=== PATIENT | male | born 1950 | race Caucasian/White ===

== ENCOUNTER 2024-06-01 15:43 | Emergency (ER) | payer MEDICARE, SELFPAY ==
[2024-06-01 15:45] VITALS: BP 165/98
--- NOTE | 2024-06-01 16:22 | ED.SKININJ ---
HPI-Injury
General
Chief Complaint: Bite
Source: patient
Exam Limitations: none
Time Seen by Provider: 06/01/24 16:10
Nursing documentation reviewed up to this point in time: agreed with
History of Present Illness-Injury
Is this injury a work related problem?: No
Is pt an associate of [facility]?: No
Initial Injury comments:
74-year-old male presenting to the emergency department today with concerns of a small irritation to his left upper thigh. Is unsure if there was a tick there and not eating so may have been a mole. There is small amount of surrounding redness and
mild tenderness to the area no fluctuance or induration no.
Past History
Past History
ED Past Medical History: Negative HTN or Hypercholesterolemia
ED Past Surgical History: Negative Cardiac or Cholecystectomy
Social History
Tobacco: Non-smoker
Alcohol: None
Drug: None
Personal:
Living: with family
Employment: Employed
Family History
Family History: Hypertension
Review of Systems
Review of Systems
Allergies reviewed?: Yes
All Other Systems: ROS reviewed and negative except as documented in HPI and ROS
Phy Exam
Physical Exam
Physical Exam:
GENERAL: Alert , in no apparent distress
EYE: pupils equal and reactive
NECK: Supple, no significant adenopathy.
ENT: o/p clr, mmm.
CARDIAC: Regular rate and rhythm .
LUNGS: Clear breath sounds bilaterally, no acute respiratory distress, no wheezes/rales/rhonchi
ABDOMEN: Soft, without focal tenderness, no r/g, no cvat
NEUROLOGICAL: Alert and oriented, no focal neuro deficits
SKIN: 3 x 2 cm area to the left upper anterior thigh of redness no fluctuance or induration central area of bruising and small area of clot no foreign body warm and dry, skin intact.
MUSCULOSKELETAL: No edema, well perfused.
PSYCH: Normal and appropriate interaction.
Course
Vital Signs
Initial and Last Documented VS:
Initial Vital Signs
Temp Pulse Resp BP Pulse Ox
98.2 F 78 16 165/98 98
06/01/24 15:45 06/01/24 15:45 06/01/24 15:45 06/01/24 15:45 06/01/24 15:45
Last Documented Vital Signs
Temp Pulse Resp BP Pulse Ox
98.2 F 78 16 165/98 98
06/01/24 15:45 06/01/24 15:45 06/01/24 15:45 06/01/24 15:45 06/01/24 15:45
MDM/Problems Addressed
MDM/Problems Addressed:
74-year-old male presenting to the emergency department with concerns of a small lesion to the left upper thigh redness and warmth appears to be consistent with cellulitis unclear if the tick was there initially was started on doxycycline yesterday
advised to take 10 days as this could be erythema migrans. Otherwise could just be cellulitis in which case treatment with Doxy would also be appropriate. Otherwise advised for close outpatient follow-up. Return precautions given.
*Critical Care Note
Total Time (30-74mins, 75-104mins- exclusive of procedures): Not Applicable
ED Attending Note
-
Portions of this chart may have been created with voice recognition software.� Occasional wrong word or��sound alike� substitutions may have occurred due to the inherent limitations of voice recognition software.
Discharge Plan
Departure
Patient Disposition: Home (Routine Discharge)
Date of Disposition: 06/01/24
Time of Disposition: 16:25
Patient with high blood pressure during this ER visit?: No
Condition: Good
Covid-19: Not Applicable
Discharge Problem:
Cellulitis
Instructions: Cellulitis (Skin Infection), Child (DC)
Prescriptions:
No Action
loperamide 2 MG capsule
2 mg PO Q6HPRN PRN (Reason: diarhea) Qty: 10 0RF
potassium chloride 20 MEQ tablet,ER particles/crystals
20 meq PO BID Qty: 10 0RF
Referrals:
Sherin Locke CRNP [Family Provider] -
Activity Restrictions/Additional Instructions:
You came to the emergency department today with concerns of redness and swelling to your left upper thigh. This could either be secondary to a tick bite or cellulitis. Please take the prescribed medication over the next 10 days. Return to the
emergency department for any worsening, new or concerning symptoms.
Interventions
Interventions:
*Risk Screen - Suicide Last Done: 06/01/24 15:47
*General Assessment Last Done: 06/01/24 16:14
*Neglect/Abuse Screening Last Done: 06/01/24 15:47
ED- Fall Risk Assessment Last Done: 06/01/24 16:14
*ED COVID-19 Vaccine History Last Done: 06/01/24 15:47
ED-Skin Assessment Last Done: 06/01/24 16:14
Discharge Date and Time
Print Language: BULGARIAN
== END 2024-06-01 16:38 | disposition home or self-care (01) ==
LOC: EMR 15:43
PROVIDERS: EMERGENCY PHYSICIAN Emergency Medicine; FAMILY PHYSICIAN Nurse Practitioner Adult Health
DX: L03.116 Cellulitis of left lower limb (principal); Z82.49 Family history of ischemic heart disease and other diseases of the circulatory system; Z90.49 Acquired absence of other specified parts of digestive tract
CPT/HCPCS: 99282

== ENCOUNTER → 2025-06-28 07:09 | Outpatient (REF) | payer MEDICARE, OTHER, SELFPAY | LOC: MRI 3T 07:09 | PROVIDERS: ATTENDING PHYSICIAN Physical Medicine & Rehabilitation; FAMILY PHYSICIAN Nurse Practitioner Adult Health | DX: M54.16 Radiculopathy, lumbar region (principal) | CPT/HCPCS: 72148 ==